=== PATIENT | female | born 1955 | race Caucasian/White ===

== ENCOUNTER 2017-08-27 19:07 | Emergency (ER) | payer MEDICAID ==
[~2017-08-27] VITALS: Ht 177.8 cm; Wt 83.4 kg
[2017-08-27 22:10] VITALS: BP 126/74
== END 2017-08-27 22:22 | disposition home or self-care (01) ==
LOC: ED 22:05
DX: M54.16 Radiculopathy, lumbar region (principal); Z88.8 Allergy status to other drugs, medicaments and biological substances
CPT/HCPCS: 99284